=== PATIENT | female | born 1990 | race Two or more races ===

== ENCOUNTER 2018-01-14 11:24 | Emergency (ER) | payer OTHER ==
[~2018-01-14] VITALS: Ht 162.6 cm; Wt 59.0 kg
[2018-01-14 11:30] VITALS: BP 125/74
== END 2018-01-14 12:53 | disposition home or self-care (01) ==
LOC: ER 11:25
DX: S90.31XA Contusion of right foot, initial encounter (principal); W10.8XXA Fall (on) (from) other stairs and steps, initial encounter; Y93.89 Activity, other specified; Y92.89 Other specified places as the place of occurrence of the external cause; Y99.8 Other external cause status
CPT/HCPCS: 73630; 99284; A4606; Z7610

== ENCOUNTER 2018-11-15 19:06 | Emergency (ER) | payer OTHER ==
[~2018-11-15] VITALS: Ht 170.2 cm; Wt 54.4 kg
[2018-11-15 19:22] VITALS: BP 114/81
[2018-11-15] MEDS ORDERED: LIDOCAINE 1%-EPI 1:100,000 20 ML VIAL TP ONE (20:00)
[2018-11-15] MEDS ORDERED: LIDOCAINE 1%-EPI 1:100,000 20 ML VIAL ONE (20:00)
== END 2018-11-15 20:32 | disposition home or self-care (01) ==
LOC: ER 19:11
DX: S01.81XA Laceration without foreign body of other part of head, initial encounter (principal); S70.02XA Contusion of left hip, initial encounter; S50.312A Abrasion of left elbow, initial encounter; S50.311A Abrasion of right elbow, initial encounter; W05.1XXA Fall from non-moving nonmotorized scooter, initial encounter; Y93.55 Activity, bike riding; Y92.89 Other specified places as the place of occurrence of the external cause; Y99.8 Other external cause status
CPT/HCPCS: 12011; 99283; J3490

== ENCOUNTER 2018-12-07 11:01 | Emergency (ER) | payer OTHER ==
[~2018-12-07] VITALS: Ht 170.2 cm; Wt 53.5 kg
[2018-12-07 11:13] VITALS: BP 121/90
== END 2018-12-07 11:45 | disposition home or self-care (01) ==
LOC: ER 11:03
DX: S01.81XD Laceration without foreign body of other part of head, subsequent encounter (principal); L73.1 Pseudofolliculitis barbae; F10.10 Alcohol abuse, uncomplicated; Y90.9 Presence of alcohol in blood, level not specified; X58.XXXD Exposure to other specified factors, subsequent encounter

== ENCOUNTER 2020-01-23 18:26 | Emergency (ER) | payer OTHER ==
[~2020-01-23] VITALS: Ht 167.6 cm; Wt 48.5 kg
[2020-01-23 18:38] VITALS: BP 128/80
[2020-01-23] MEDS ORDERED: FLUORESCEIN SODIUM OPHTH 1 EA STRIP ONE (18:43)
--- NOTE | 2020-01-23 18:52 | NUR ---
Visual Acuity Corrected R eye (unaffected) 20/25 Left eye (affected) 20/40 Both 20/30
--- NOTE | 2020-01-23 19:00 | NUR ---
Patient discharged to home in stable condition. Written and verbal after care instructions given. Patient verbalizes understanding of instruction.
== END 2020-01-23 19:01 | disposition home or self-care (01) ==
LOC: ER 18:27
DX: H00.014 Hordeolum externum left upper eyelid (principal); H10.32 Unspecified acute conjunctivitis, left eye

== ENCOUNTER 2020-01-27 10:52 | Emergency (ER) | payer OTHER ==
[~2020-01-27] VITALS: Ht 167.6 cm; Wt 49.0 kg
[2020-01-27 11:03] VITALS: BP 126/82
--- NOTE | 2020-01-27 11:25 | NUR ---
Patient eloped from facility. ER MD notified.
== END 2020-01-27 11:27 | disposition left against medical advice (07) ==
LOC: ER 10:52
DX: H57.89 Other specified disorders of eye and adnexa (principal); R45.1 Restlessness and agitation; Z88.1 Allergy status to other antibiotic agents